=== PATIENT | female | born 1995 | race Hispanic/Latino ===

== ENCOUNTER 2023-07-11 20:04 | Emergency (ER) | payer OTHER ==
[2023-07-11] MEDS ORDERED: KETOROLAC 30MG VIAL (30MG/ML) IM ONE (21:30)
== END 2023-07-11 22:50 | disposition left against medical advice (07) ==
LOC: EDH 20:04
DX: M54.2 Cervicalgia (principal); M25.561 Pain in right knee; Z90.49 Acquired absence of other specified parts of digestive tract; V89.2XXA Person injured in unspecified motor-vehicle accident, traffic, initial encounter; Y93.89 Activity, other specified; Y92.89 Other specified places as the place of occurrence of the external cause; Y99.8 Other external cause status
CPT/HCPCS: 73502; 73562